=== PATIENT | female | born 1990 | race Caucasian/White ===

== ENCOUNTER 2023-11-08 13:17 | Emergency (ER) | payer MEDICAID | END 2023-11-08 14:00 | disposition home or self-care (01) | LOC: LB.ED 13:17 | DX: B02.9 Zoster without complications (principal); F17.210 Nicotine dependence, cigarettes, uncomplicated; Z79.899 Other long term (current) drug therapy | CPT/HCPCS: 99282; 99283 ==

== ENCOUNTER 2025-02-03 15:16 | Emergency (ER) | payer MEDICAID ==
[2025-02-03] MEDS: diphenhydrAMINE 50 MG/ML SDV IVPUSH ONE (15:30)
[2025-02-03] MEDS: methylPREDNISolone Sodium Succinate 125 MG/2 ML SDV IVPUSH ONE (15:32)
== END 2025-02-03 16:40 | disposition home or self-care (01) ==
LOC: LB.ED 15:16
DX: L50.9 Urticaria, unspecified (principal); Z79.890 Hormone replacement therapy; Z79.899 Other long term (current) drug therapy
CPT/HCPCS: 96374; 96375; 99283; 99283-25; J1200; J2919